=== PATIENT | female | born 1970 | race Caucasian/White ===

== ENCOUNTER 2017-01-22 19:25 | Emergency (ER) | payer MEDICAID ==
--- NOTE | 2017-01-22 20:04 | ED Physician Chart ---
Chief Complaint/HPI - Patient Information Date Seen:: 01/22/17 Time Seen:: 19:59 Chief Complaint:: low back pain History of Present Illness:: pt is here w son and sister..ie is not driving herself. she is her for 1 day hx of low back pain for which she has not taken any med at all. back pain is worse w mvt. there was no known injury. she denies prior back pain but when i remind her i saw her 2 yrs ago for sciatic pain she admits she still does have this intermitently. pt has a local dr but he wasnt available today. no change in urine or bm's. no fever. no cough. no abd p. no cp. no sob. lmp is reg and nrml timing/duration. she denies chronic med conditions...nor any recent med rx's x many months. Vitals:: Vital Signs - 8 hr 01/22/17 19:43 Temp 98.4 F HR 87 RR 18 BP 114/74 O2 Sat % 99 Historian:: Patient Review of Systems - Review of Systems General/Constitutional: No fever, No chills, No weight loss, No weakness, No diaphoresis, No edema, No loss of appetite Skin: No skin lesions, No rash, No bruising Head: No headache, No light-headedness Eyes: No loss of vision, No pain, No diplopia, Other (lazy eye) ENT: No earache, No nasal drainage, No sore throat, No tinnitus Neck: No neck pain, No swelling, No thyromegaly, No stiffness, No mass noted Cardio Vascular: No chest pain, No palpitations, No PND, No orthopnea, No edema Pulmonary: No SOB, No cough, No sputum, No wheezing GI: No nausea, No vomiting, No diarrhea, No pain, No melena, No hematochezia, No constipation, No hematemesis G/U: No dysuria, No frequency, No hematuria Musculoskeletal: No bone or joint pain, Back pain, No muscle pain Endocrine: No polyuria, No polydipsia Psychiatric: No prior psych history, No depression, No anxiety, No suicidal ideation Hematopoietic: No bruising, No lymphadenopathy Allergic/Immuno: No urticaria, No angioedema Neurological: No syncope, No focal symptoms, No weakness, No paresthesia, No headache, No seizure, No dizziness, No confusion, No vertigo Past Medical History - Past Medical History Past Medical History: Other (lazy eye, sciatic hx) Social History: Non Smoker, No Alcohol Medication: None Family Medical History - Family Member Mother History Unknown: Yes Living Status: Still Living Physical Exam - Physical Examination General/Constitutional: Awake, Well-developed, well-nourished, Alert, No distress, GCS 15, Non-toxic appearing, Ambulatory Head: Atraumatic Eyes: Lids, conjuctiva normal, PERRL, EOMI Other Eyes comments:: lazy eye noted Skin: Nl inspection, No rash, No skin lesions, No ecchymosis, Well hydrated, No lymphadenopathy ENMT: External ears, nose nl, Nasal exam nl, Lips, teeth, gums nl Other ENMT comments:: global pete of all teeth. Neck: Nontender, Full ROM w/o pain, No JVD, No nuchal rigidity, No bruit, No mass, No stridor Respiratory: Nl effort/Exclusion, Clear to Auscultation, No Wheeze/Rhonchi/Rales Cardio Vascular: RRR, No murmur, gallop, rubs, NL S1 S2 GI: No tenderness/rebounding/guarding, No organomegaly, No hernia, Normal BS's, Nondistended, No mass/bruits, No McBurney tenderness Other GI comments:: no tndrness at all. no aaa. BACK tndr at l4/5 region of paraspinal muscles. no cva tndrness. : No CVA tenderness Extremities: No tenderness or effusion, Full ROM, normal strength in all extremities, No edema, Normal digits & nails Neuro/Psych: Alert/oriented, DTR's symmetric, Normal sensory exam, Normal motor strength, Judgement/insight normal, Mood normal, Normal gait, No focal deficits Misc: normal gait, Normal back, No paraspinal tenderness Labs/Radiology/EKG Results - Lab Results Results: Laboratory Tests 01/22/17 20:25 Urine Test NEGATIVE Laboratory Tests 01/22/17 01/22/17 20:25 20:25 Urine Source CLEAN C Urine Color YELLOW Urine Clarity CLEAR Urine pH 6.0 Ur Specific Crucible 1.025 Urine Protein NEGATIVE Urine Glucose (UA) NEGATIVE Urine Ketones NEGATIVE Urine Blood NEGATIVE Urine Nitrate NEGATIVE Urine Bilirubin NEGATIVE Urine Urobilinogen 2.0 Ur Leukocyte Esterase NEGATIVE Urine RBC NONE SEEN Urine WBC NONE SEEN Ur Epithelial Cells NONE SEEN Urine Bacteria NONE SEEN Urine Test NEGATIVE - Radiology Results Results: l spine no fx. wnl. no aaa. ED Septic Shock - . Is Septic Shock (SBP<90, OR Lactate>4 mmol\L) present?: No - <6hrs of presentation: Vital Signs: Vital Signs - 8 hr 01/22/17 19:43 Temp 98.4 F HR 87 RR 18 BP 114/74 O2 Sat % 99 Reassessment (Disposition) - Reassessment Reassessment Condition:: Improved - Diagnosis Diagnosis:: lumbar strain / back pain - Aftercare/Follow up Instructions Aftercare/Follow-Up Instructions:: Counseled pt & family regarding lab results/ diagnosis & need follow up Medication Prescribed:: rx norco 5s no 12 - Patient Disposition Discharge/Transfer:: Home Condition at Disposition:: Improved
[2017-01-22] MEDS ORDERED: Hydrocodone/APAP 5mg/325mg Tab PO ONE (20:11)
[2017-01-22] MEDS ORDERED: Hydrocodone/APAP 5mg/325mg Tab ONE (21:32)
[2017-01-22 21:34] LABS: URINE BACTERIA NONE SEEN /hpf (NONE SEEN); URINE BILIRUBIN NEGATIVE (NEGATIVE); URINE BLOOD NEGATIVE (NEGATIVE); URINE COLOR YELLOW; URINE EPITHELIAL CELLS NONE SEEN /lpf (FEW); URINE GLUCOSE (UA) NEGATIVE (NEGATIVE); URINE KETONE NEGATIVE (NEGATIVE); URINE PROTEIN NEGATIVE (NEGATIVE); URINE RBC NONE SEEN /hpf (0-5); URINE WBC NONE SEEN /hpf (0-5)
--- NOTE | 2017-01-23 11:09 | Diagnostic Imaging Report ---
Lumbar spine (3 views) HISTORY: Pain Alignment is normal. Disc spaces are maintained. Small spur formation noted about the endplates of L2, L3, L4, and L5. No other focal lesions. IMPRESSION: 1. Mild degenerative changes 2. No acute abnormalities
== END 2017-01-22 22:12 | disposition home or self-care (01) ==
LOC: ER 19:25
DX: M54.5 Low back pain (principal)
CPT/HCPCS: 72100-TC; 81001-TC; 81025-TC